=== PATIENT | female | born 1965 | race Two or more races ===

== ENCOUNTER 2018-04-29 10:26 | Day surgery (SDC) | payer SELFPAY ==
[~2018-04-29] VITALS: Ht 165.1 cm; Wt 97.1 kg
[~2018-04-29 10:26] MED LIST: DEXAMETHASONE SOD PHOS 20 MG/5 ML VIAL. ONE; HYDROmorphone 2 MG/ML VIAL IV PRN; IBUP-1027 PO; IV RINGERS,LACTATED 1000ML 1,000 ML IV SCH; LIDOCAINE 1% PF 2 ML VIAL. ID PRN; LIDOCAINE 2% PF Vial for OR 5 ML VIAL. ONE; MORPHINE SULFATE 2 MG/ML VIAL. IV PRN; ONDANSETRON PF 4 MG/2 ML VIAL. IV PRN; ONDANSETRON PF 4 MG/2 ML VIAL. ONE; PROCHLORPERAZINE 10 MG/2 ML VIAL. IV PRN; PROPOFOL 20 ML IV ONE; fentaNYL PF VIAL 100 MCG/2 ML VIAL IV PRN; fentaNYL PF VIAL 100 MCG/2 ML VIAL ONE
--- NOTE | 2018-04-29 10:54 | DISCH ---
DISCHARGE INSTRUCTIONS Condition on Discharge Condition on Discharge: Stable Activity After Discharge Activity Instructions for Disc: Other, see below (gentle range of motion with fingers and grasping is okay such as using silverware writing and typing) Lifting Instructions after Dis: No heavy lifting Weight Bearing Status after Di: Non weight bearing Diet after Discharge Diet after Discharge: Regular Wound Incision Care Wound/Incision Care: Do not change dressing (keep dressing intact cover in shower to avoid getting wet) Contacting the DR. after DC Call your doctor for: Concerns you may have Follow-Up Follow up with: Jose G 1 week VINICIUS LAWRENCE MD Apr 29, 2018 10:54
[2018-04-29] MEDS ORDERED: HYDR-3165 PO (10:55)
[2018-04-29] MEDS ORDERED: BUPIVACAINE MPF 0.5% 30 ML VIAL. ONE (12:05)
[2018-04-29] MEDS ORDERED: SEVOFLURANE 61 TO 120 MINUTES. IH ONE (13:47)
[2018-04-29] MEDS ORDERED: ESMOLOL 100 MG/10 ML VIAL. IVP ONE (13:47)
[2018-04-29] MEDS ORDERED: KETOROLAC 30 MG/ML INJ FOR OR. INJ ONE (13:47)
--- NOTE | 2018-04-29 13:57 | PDOC4 ---
Operative Note Operative Note Date of surgery: 04/29/2018 Preoperative diagnosis: Displaced intra-articular left distal radius fracture Postoperative diagnosis: Same Operative procedure: Operative reduction internal fixation 2 part intra- articular left distal radius fracture Surgeon: Jose G Anesthesia: Gen. Estimated blood loss: 5 mL Complications: None Operative indications: Patient is a 52-year-old female that fell on the ice sustaining painful deformity to her wrist she was seen in clinic in follow-up from the emergency department and I went over with her through an sign language interpreter the poor alignment at the joint space and my recommendation for operative fixation with plate and screws to best realign the joint space and minimize deformity and premature degenerative changes due to malalignment. I went over with her that even under the best of circumstances that she could have some stiffness continued pain some weakness and perhaps some premature degenerative changes however the should be minimized by the operative treatment as opposed to closed reduction due to the intra-articular displaced nature of the fracture. All her questions were answered she wishes to proceed with surgical evaluation and treatment Operative text: Patient was identified procedure verified patient placed in the supine position on the operating table. After adequate amounts of general anesthesia were administered and upper arm tourniquet was placed in the left upper extremity was prepped and draped in standard sterile fashion. After timeout was performed patient procedure identified and verified the left upper extremity was exsanguinated by Esmarch bandage tourniquet inflated to 250 mmHg and a Henrique approach was carried out to the volar approach of the distal radius. Subperiosteal dissection was carried out a small narrow plate was selected after reduction carried out under fluoroscopic guidance and distal screws were placed one at a time under direct fluoroscopic guidance verifying reduction and hardware positioning. Proximal row screws were then filled then and 2 nonlocking shaft screws altogether were placed excellent fixation was noted with near anatomic reduction at the joint space screws were noted to be out of the articular space is well and properly sized. Thorough irrigation carried out normal saline solution closure accomplished with buried Vicryl suture subcuticular Monocryl Steri-Strips and Mastisol a well-padded volar splint was placed fingers were noted be warm pink find deflation of tourniquet patient was returned recovery room in stable condition having tolerated procedure well VINICIUS LAWRENCE MD Apr 29, 2018 13:57
[2018-04-29] MEDS: fentaNYL PF VIAL 100 MCG/2 ML VIAL IV PRN ×2 (14:16→14:35)
[2018-04-29 15:00] VITALS: BP 148/70
[2018-04-29] MEDS ORDERED: HYDROcodone/APAP 7.5/325MG 1 TAB TABLET PO ONE (15:00)
== END 2018-04-29 15:24 | disposition home or self-care (01) ==
LOC: SURG 10:26
PROVIDERS: ATTEND Orthopaedic Surgery
DX: S52.572A Other intraarticular fracture of lower end of left radius, initial encounter for closed fracture (principal); W00.0XXA Fall on same level due to ice and snow, initial encounter; Y93.89 Activity, other specified; Y92.89 Other specified places as the place of occurrence of the external cause; Y99.8 Other external cause status
CPT/HCPCS: 25608; A7015; C1713; J0696; J1100; J1885; J2001; J2405; J2704; J3010; J3490